=== PATIENT | male | born 1990 | race Hispanic/Latino ===

== ENCOUNTER 2017-09-06 06:50 | Day surgery (SDC) | payer OTHER ==
[2017-09-05 14:21] VITALS: BMI 27.8
[~2017-09-06 06:50] MED LIST: FLU VACC QS2017-18 36 mo. & older 0.5 ML SYRINGE IM ONE
[2017-09-06 08:02] VITALS: BP 132/96; TEMP 97.9
--- NOTE | 2017-09-06 11:06 | RAD ---
LUMBAR SPINE MYELOGRAM THORACIC SPINE MYELOGRAM CERVICAL SPINE MYELOGRAM: History: Degenerative disc disease. Thoracic spine pain. Comparison: None. Exposure: 0.7 minutes; 578 mGy*cm\S\2. FINDINGS: Initial woodwork teacher cervical spine radiograph demonstrates an anterior fusion plate with transverse verteb ral body screws at C4, C5, and C6. Disc prosthesis at C4-5 and C5-6. There is retrolisthesis of C4 u servando C5. No prevertebral soft tissue swelling. Two views of the thoracic spine shows preservation of vertebral body height. No fractures or malalig nment. Two views of the lumbar spine demonstrate five lumbar type vertebral bodies. No fractures or malalig nment. Lumbar puncture. A total of 10 cc of Isovue M300 contrast was administered intrathecally. Patient to lerated the procedure well. No immediate or post procedure complication. Technique: Consent obtained to perform a lumbar puncture for a cervical, thoracic and lumbar spine myelogram. P atient's back was evaluated. The L2-3 level was deemed appropriate. The skin was prepped and draped in sterile fashion. 1% Lidocaine buffered with sodium bicarbonate was used for local anesthesia. Und er fluoroscopic guidance, a 22 gauge spinal needle was advanced into the CSF space. Via short tubing catheter, a total of 10 cc of Isovue 300M contrast was administered intrathecally. Patient tolerate d the procedure well. No immediate or post procedure complications. IMPRESSION: Successful lumbar puncture for cervical, thoracic, and lumbar spine myelogram. POS: [facility]
--- NOTE | 2017-09-06 11:12 | CT ---
CERVICAL SPINE CT WITH CONTRAST: History: Cervical disc degeneration. Comparison: None. Technique: A post myelogram cervical spine CT is performed in the axial plane. Sagittal, coronal and reformatted images are submitted for interpretation. FINDINGS: An anterior fusion plate with vertebral body screw at C4, C5, and C6. No perihardware lucency. There is a disc prosthesis at C4-5 and C5-6. There is retrolisthesis of C4 upon C5 of approximately 3.8 m m. Lateral masses of C1 and C2 articulate appropriately. There is appropriate articulation of the facet s. Visualized soft tissue neck structures, upper mediastinum and lung apices are unremarkable. No cervical spine fracture. C2-3: No significant disc osteophyte complex. No significant central canal stenosis. Neural foramina are patent. C3-4: Small paracentral disc osteophyte complex abuts the thecal sac and deforms the cord. Mild cent ral canal stenosis. Right neural foramen is patent. Moderate left foraminal narrowing and degenerati ve change of the uncal vertebral joint. C4-5: Disc prosthesis. Minimal left paracentral disc osteophyte complex. Minimal deformity of the le ft hemicord. Mild central canal stenosis. Neural foramina are patent. C5-6: Broad based disc osteophyte complex abuts the thecal sac. No significant mass effect upon the cervical cord. No significant central canal stenosis. Minimal right foraminal narrowing due to degen erative change of the uncal vertebral joint and facet hypertrophy. Left neural foramen is patent. C6-7: No significant disc osteophyte complex. No significant central canal stenosis. Neural foramina are patent. C7-T1: No significant disc osteophyte complex. No significant central canal stenosis. Neural foramin a are patent. IMPRESSION: 1. Cervical fusion from C4 through C6. 2. Grade I retrolisthesis of C4 upon C6. 3. Varying degrees of central canal stenosis as detailed above. Foraminal stenosis as detailed above . POS: [facility]
--- NOTE | 2017-09-06 11:23 | CT ---
THORACIC SPINE CT WITH CONTRAST: History: Thoracic pain. Degenerative disc disease. Comparison: None. Technique: Post myelogram thoracic spine CT is performed in the axial plane. Reformatted images are submitted for interpretation. FINDINGS: Limited evaluation of the mediastinum. No obvious mediastinal mass, lymphadenopathy, or hematoma. Tr achea and central bronchi are patent. Minimal dependent atelectatic changes. Visualized upper solid organs are unremarkable. There is a 3.2 x 4.1 cm cyst in the left kidney. Conus medullaris terminates at the inferior endplate of T12. Thoracic spine vertebral body heights are maintained. No fractures or malalignment. Schmorl's nodes are noted throughout the thoracic spine. No spondylolisthesis or spondylosis. With regards to the thoracic spine, the central spinal canal and neural foramina are patent. No sign ificant stenosis or foraminal narrowing. IMPRESSION: 1. No significant central canal stenosis or foraminal narrowing. 2. Incidental left renal cyst. POS: [facility]
--- NOTE | 2017-09-06 11:32 | CT ---
LUMBAR SPINE CT WITH CONTRAST: History: Degenerative disc disease. Pain. Comparison: None. Technique: Lumbar spine CT is performed after intrathecal contrast administration. Reformatted image s are submitted for interpretation. FINDINGS: Left renal cyst is noted. Refer to thoracic spine CT report for further details. No retroperitoneal mass, lymphadenopathy, or hematoma. Symmetric attenuation of the psoas muscles. Thoracic spine vertebral height is maintained. No spondylolisthesis. No spondylosis. Conus medullari s terminates at the inferior endplate of the T12. T12-L1: No significant central canal stenosis. Neural foramina are patent. L1-2: No significant central canal stenosis. Neural foramina are patent. L2-3: No significant posterior disc abnormality. No significant central canal stenosis. Neural ricardo hanna are patent. L3-4: No significant posterior disc abnormality. No significant central canal stenosis. Neural ricardo hanna are patent. L4-5: Generalized disc bulge, ligamentum flavum and facet hypertrophy result in mild central canal s tenosis. There is minimal narrowing of both subarticular zones. Neither traversing L5 nerve root is obscured. Minimal mass effect upon bilateral traversing S1 nerve roots is noted. Mild right and left foraminal narrowing. L5-S1: No significant posterior disc abnormality. No significant central canal stenosis. Right neura l foramen is patent. Mild left neural foraminal narrowing. IMPRESSION: Degenerative changes in the lumbar spine as above. No high grade central canal stenosis or high grad e foraminal narrowing. POS: [facility]
[2017-09-06] MEDS ORDERED: Iopamidol-M 300 61% 15 ML VIAL ONE (13:37)
== END 2017-09-06 10:10 | disposition home or self-care (01) ==
LOC: RAD 06:50
PROVIDERS: ATTEND Neurological Surgery
PROC: B00B1ZZ Plain Radiography of Spinal Cord using Low Osmolar Contrast (ICD-10-PCS; principal; 2017-09-06)
DX: M50.122 Cervical disc disorder at C5-C6 level with radiculopathy (principal); M51.36 Other intervertebral disc degeneration, lumbar region
CPT/HCPCS: 62305; 72126; 72129; 72132

== ENCOUNTER 2017-10-30 06:45 | Inpatient (IN) | payer OTHER ==
[2017-10-27 12:18] VITALS: BMI 27.3
[2017-10-30] MEDS ORDERED: CEFAZOLIN/Water 2 GM/20 ML SYRINGE ONE (08:14)
[2017-10-30 08:17] LABS: #Eosinphils 0.1 thou/uL (0.0-0.7); #Lymphocytes 1.6 thou/uL (1.20-3.40); #Monocytes 0.5 thou/uL (0.11-0.59); #Neutrophils 3.7 thou/uL (1.40-6.50); %Basophils 0.7 % (0.0-1.0); %Eosinophils 1.9 % (0.0-10.0); %Lymphocytes 26.5 % (21.0-51.0); %Monocytes 8.5 % (0.0-10.0); Hematocrit 43.7 % (42.0-52.0); Mean Platelet Volume 6.6 fL (7.4-10.4); Red Blood Cell (RBC) Count 4.62 mill/uL (4.70-6.10); White Blood Cell (WBC) Count 5.9 thou/uL (4.8-10.8)
[2017-10-30] MEDS ORDERED: Bacitracin Zinc Ointment 30 gm TUBE ONE (08:23)
[2017-10-30] MEDS ORDERED: Sodium Chloride 0.9% 10 ML ONE (08:23)
[2017-10-30 08:29] LABS: Anion Gap 9 mmol/L (10-20); BUN (Urea Nitrogen) 15 mg/dL (8.9-20.6); Calc. Creatinine Clearance 107 mL/min (70-130); Calcium 9.6 mg/dL (7.8-10.44); Carbon Dioxide 29 mmol/L (22-29); Chloride 103 mmol/L (98-107); Estimated GFR-MDRD 73
[2017-10-30] MEDS ORDERED: Fentanyl 250 MCG/5 ML VIAL ONE (08:55)
--- NOTE | 2017-10-30 10:10 | OP ---
DATE OF PROCEDURE: 10/30/2017 SURGEON: Chucho Reyes M.D. ROUGH ROUNDER MACHINE: Bryan Harper PA-C PROCEDURE: Posterior cervical laminectomy C4-C6, posterolateral arthrodesis C4-C6, lateral mass scre w instrumentation C4-C6, demineralized bone matrix, and local morselized autograft. PROCEDURE IN DETAIL: The patient was brought intubated. He was rolled in the prone position on gel- filled chest rolls with the head fixed in the damon head of sales and marketing in neutral position. An incision wa s made exposing C4-C6 bilaterally and our level was confirmed by x-ray. We performed partial C4-C6 l aminotomies for the purpose of decompression and then placed lateral mass screws at C4, C5, and C6 bi laterally. A tre was secured between the screws, connected by nuts that were final tightened. The w ound was then extensively irrigated, immaculate hemostasis was secured. A combination of demineraliz ed bone matrix and local morselized autograft was laid over the laminar and posterolateral surfaces f or the purpose of arthrodesis. Vancomycin powder was applied and the wound was closed in anatomic la yers.
[2017-10-30] MEDS ORDERED: Fentanyl 100 MCG/2 ML VIAL ONE ×3 (10:23→11:25)
[2017-10-30] MEDS ORDERED: Promethazine HCl 25 MG/ML VIAL ONE (10:39)
[2017-10-30] MEDS ORDERED: HYDROmorphone 0.5 MG/0.5 ML SYRINGE ONE ×2 (10:49→11:26)
[2017-10-30] MEDS ORDERED: Ondansetron HCl/PF 4 MG/2 ML Vial IVP PRN ×2 (11:04→11:05)
[2017-10-30] MEDS ORDERED: Promethazine HCl 25 MG/ML VIAL IM/IV PRN (11:04)
[2017-10-30] MEDS ORDERED: HYDROmorphone 2 MG/ML VIAL SLOW IVP PRN (11:04)
[2017-10-30] MEDS ORDERED: diphenhydrAMINE 25 MG CAP PO PRN (11:05)
[2017-10-30] MEDS ORDERED: HYDROcodone/Acetaminophen 10/325 mg Tablet PO PRN (11:05)
[2017-10-30] MEDS ORDERED: Promethazine HCl 12.5 MG SUPP PR PRN (11:05)
[2017-10-30] MEDS ORDERED: Promethazine HCl 25 MG/ML VIAL IM PRN (11:05)
[2017-10-30] MEDS ORDERED: Milk Of Magnesia 30 ML UDCUP PO PRN (11:05)
[2017-10-30] MEDS ORDERED: Morphine 4 MG/ML Carpuject SLOW IVP PRN (11:05)
[2017-10-30] MEDS ORDERED: diphenhydrAMINE 50 MG/ML VIAL IVP PRN (11:05)
[2017-10-30] MEDS ORDERED: Mag-Al 1200 mg/1200 mg/30 ML UDCUP PO PRN (11:05)
[2017-10-30] MEDS ORDERED: tiZANidine HCl 4 MG TAB PO PRN (11:05)
[2017-10-30] MEDS: Sodium Chloride 0.9% 1,000 ML IV SCH (12:13)
[2017-10-30] MEDS: HYDROcodone/Acetaminophen 10/325 mg Tablet PO PRN ×3 (14:22→23:13)
[2017-10-30] MEDS: CEFAZOLIN/Water 2 GM/20 ML SYRINGE SLOW IVP SCH ×2 (14:27→23:04)
[2017-10-30] MEDS ORDERED: Ondansetron HCl/PF 4 MG/2 ML Vial ONE (16:11)
[2017-10-30] MEDS ORDERED: Glycopyrrolate 0.2 MG/ML 5 ML SYRINGE ONE (16:11)
[2017-10-30] MEDS ORDERED: Esmolol 100 MG/10 ML VIAL ONE (16:11)
[2017-10-30] MEDS ORDERED: PHENYLEPHRINE-NS 100 MCG/ML 10 ML SYRINGE ONE (16:11)
[2017-10-30] MEDS ORDERED: Lidocaine 1% PF 5 ML VIAL ONE (16:11)
[2017-10-30] MEDS ORDERED: Ketorolac Tromethamine 30 MG/ML VIAL ONE (16:11)
[2017-10-30] MEDS ORDERED: Propofol 200 MG/20 ML VIAL ONE (16:11)
[2017-10-30] MEDS ORDERED: Dexamethasone 20 MG/5 ML VIAL ONE (16:11)
[2017-10-31] MEDS: Sodium Chloride 0.9% 1,000 ML IV SCH (04:18)
[2017-10-31] MEDS: HYDROcodone/Acetaminophen 10/325 mg Tablet PO PRN (07:36)
[2017-10-31 07:40] VITALS: BP 130/80; TEMP 97.9
== END 2017-10-31 09:00 | disposition home or self-care (01) | DRG 473 ==
LOC: SDC 06:45 → 3SE 07:30
PROVIDERS: ADMIT Neurological Surgery; ATTEND Neurological Surgery
PROC: 0RG2071 Fusion of 2 or more Cervical Vertebral Joints with Autologous Tissue Substitute, Posterior Approach, Posterior Column, Open Approach (ICD-10-PCS; principal; 2017-10-30)
DX: T84.226A Displacement of internal fixation device of vertebrae, initial encounter (principal); T84.84XA Pain due to internal orthopedic prosthetic devices, implants and grafts, initial encounter; M54.12 Radiculopathy, cervical region
CPT/HCPCS: 76001; 80048; 85025; 93005; 93010; A4216; C1713; C1768; J1100; J1170; J1885; J2001; J2405; J2550; J2704; J3010; J3370; J3490

== ENCOUNTER 2017-11-16 15:36 | Outpatient (CLI) | payer OTHER ==
--- NOTE | 2017-11-16 16:35 | RAD ---
CERVICAL SPINE THREE VIEWS: 11/16/17 HISTORY: Neck pain. Prior surgery. COMPARISON: 09/06/17. FINDINGS: There is now posterior operative fixation at the C5-6-7 levels. Anterior fixation at the C4-5-6 level s is again demonstrated with partial collapse of the C4 vertebral body and kyphotic angulation. Other vertebral body heights remain intact. Cervicothoracic junction is maintained. IMPRESSION: Interval posterior operative fixation of the lower cervical spine. Otherwise stable radiographic appe arance. POS: [facility]
== END 2017-11-16 15:37 | disposition home or self-care (01) ==
LOC: TBSIIMAG 15:36
PROVIDERS: ATTEND Physician Assistant
DX: M54.2 Cervicalgia (principal); Z98.890 Other specified postprocedural states
CPT/HCPCS: 72040

== ENCOUNTER 2018-01-16 13:25 | Outpatient (CLI) | payer OTHER ==
--- NOTE | 2018-01-16 15:57 | RAD ---
THREE VIEWS CERVICAL SPINE: 01/16/18 AP, lateral and open mouth odontoid views cervical spine is obtained on 01/16/18. COMPARISON: Comparison made to previous exam from 11/08/17/ Images demonstrate anterior and posterior fusion involving the C4, C5 and C6 vertebrae. Anterior and posterior hardware is unchanged. There does appear to be slight posterior displacement of the posteri or inferior aspect of the C4 vertebrae. This is stable and unchanged. No significant interval changes seen. There is loss of the normal lordotic curvature of the cervical spine. IMPRESSION: Stable three view cervical spine. POS: [facility]
== END 2018-01-16 13:26 | disposition home or self-care (01) ==
LOC: TBSIIMAG 13:25
PROVIDERS: ATTEND Neurological Surgery
DX: M54.2 Cervicalgia (principal)
CPT/HCPCS: 72040

== ENCOUNTER 2020-09-11 06:48 | Day surgery (SDC) | payer MEDICARE, OTHER ==
[2020-09-10 10:17] VITALS: BMI 27.3
[~2020-09-11 06:48] MED LIST changes: -FLU VACC QS2017-18 36 mo. & older 0.5 ML SYRINGE IM ONE; +FLU VACC QS2020-21(6MOS UP)/PF 60 MCG/0.5 ML SYRINGE IM ONE
[2020-09-11 07:48] VITALS: BP 122/93; TEMP 98.2
--- NOTE | 2020-09-11 08:34 | RAD ---
CERVICAL MYELOGRAM: HISTORY: Cervical radiculopathy. Previous cervical fusion. COMPARISON: None. FINDINGS: Initial 2 view rubber goods finisher lumbar spine radiograph demonstrates 5 lumbar-type vertebrae. Lumbar spine verte bral body height is maintained. No fracture. Disc space heights are preserved. No spondylolisthesis or spondylolysis. Two views of the cervical spine demonstrate anterior fusion plate at C4, C5 and C6. No perihardware l ucency. C4-C5 and C5-C6 bone plug/disc prosthesis. There is fusion hardware traversing the facets at C4, C5 and C6. There is prominent anterior osteophyte at C3-C4. Predental space is normal. No prevertebral soft tissue swelling. There is multilevel facet hypertrophy. Successful lumbar puncture. Total of 9 cc of Isovue-M 300 contrast was administered intrathecally at the L2-L3 level. TECHNIQUE: Consent obtained to perform a lumbar puncture for cervical myelogram. The patient's back was evaluate d. The L2-L3 level was deemed appropriate. Skin was prepped and draped in a sterile fashion. 1% lidocaine, buffered with sodium bicarbonate was used for local anesthesia. Under fluoroscopic guidanc e, a 22-gauge spinal needle was advanced into the CSF space. There is prompt flow of clear CSF to the hub of the needle. Via a short tubing catheter, a total of 9 cc of Isovue-M 300 contrast was admi nistered intrathecally. Patient tolerated the procedure well. No immediate or postprocedure complications. IMPRESSION: Successful lumbar puncture for cervical myelogram. Transcribed Date/Time: 09/11/2020 9:22 AM
--- NOTE | 2020-09-11 10:29 | CT ---
POST MYELOGRAM CERVICAL SPINE CT: HISTORY: Cervical radiculopathy. Previous cervical fusion. COMPARISON: 08/27/2017. FINDINGS: Redemonstration of anterior fusion plate with transvertebral body screw at C4, C5 and C6. No perihard rojas lucency. C4-C5 and C5-C6 bone plug. Partial fusion of the disc space. Posterior element screws at C4, C5 and C6, without perihardware lucency. There is an interval development of a prominent osteo phyte along the anterior inferior aspect of C3. No craniocervical cervical dissociation. Cervical spine vertebral body heights are maintained. No fra cture. Stable slight reversal of lordosis centered at C4. C2-C3: Left paracentral disc-osteophyte complex. Mild central canal stenosis. Patent bilateral neural foramina. No significant interval change. C3-C4: Broad-based disc-osteophyte complex. Mass effect upon the central and left paracentral aspect of the cord. Degree of mass effect is similar to the previous exam. No significant interval change with regards to the degree of central canal stenosis. Patent right neural foramen. Moderate to severe left neural foraminal narrowing due to uncovertebral hypertrophy, stable. C4-C5:Broad-based osteophyte ridge. Mass effect upon the ventral/left paracentral cervical cord. Mild to moderate central canal stenosis, unchanged. Mild bilateral neural foraminal narrowing. C5-C6: Broad-based osteophyte ridge abuts the thecal sac. Stable mass effect upon the cervical cord. Stable mild central canal stenosis. Stable mild bilateral neural foraminal narrowing. C6-C7:Broad-based disc bulge abuts the thecal sac. No significant central canal stenosis. Patent bila teral neural foramina. C7-T1: No significant central canal stenosis. Patent bilateral neural foramina. IMPRESSION: 1.Redemonstration of anterior and posterior fusion changes of the cervical spine. 2. Multilevel degenerative changes of the cervical spine as detailed above. When compared to the prev ious examination, the overall degree of central canal stenosis and neural foraminal narrowing is stable. 3. Stable reversal of cervical lordosis at C4. Transcribed Date/Time: 09/11/2020 10:54 AM
[2020-09-11] MEDS ORDERED: Iopamidol-M 300 61% 15 ML VIAL ONE (15:37)
== END 2020-09-11 09:45 | disposition home or self-care (01) ==
LOC: RAD 06:48
PROVIDERS: ATTEND Neurological Surgery
PROC: B02B1ZZ Computerized Tomography (CT Scan) of Spinal Cord using Low Osmolar Contrast (ICD-10-PCS; principal; 2020-09-11)
DX: M47.22 Other spondylosis with radiculopathy, cervical region (principal); M48.02 Spinal stenosis, cervical region; Z79.899 Other long term (current) drug therapy
CPT/HCPCS: 62302; 72126; Q9967